=== PATIENT | female | born 2000 | race Caucasian/White ===

== ENCOUNTER 2024-07-25 10:57 | Emergency (ER) | payer OTHER, SELFPAY ==
[2024-07-25 11:10] VITALS: BP 109/83; PULSE 107; RESP 18; TEMP 36.6; O2SAT 100
--- NOTE | 2024-07-25 11:21 | ED.FEMALEGU ---
HPI - Female Genitourinary General Chief complaint: Urogenital-Female Stated complaint: Uti Symptoms Time Seen by Provider: 07/25/24 11:21 Source: patient, RN notes reviewed and old records reviewed Mode of arrival: ambulatory Limitations: no limitations History of Present Illness HPI Narrative: 24 year old female presents to [facility] care with complaints of UTI symptoms of burning, urinary frequency, urgency since Wednesday. Patient reports some lower abdomen cramping over suprapubic area, denies any right sided abdominal pain or any CVA tenderness. She stated that it seemed to get a little better then today it started again. Patient has dark colored urinedenies noting any visible blood when wiping. Patient reports that menses was one week ago, denies any concern for or any concern for STI exposure. Patient reports no fever or chills or any nausea or vomiting. Patient reports that she has taken some Ibuprofen for her symptoms. MD elicited complaint: UTI (symptoms) Onset (ago): day(s) (5 days) Location of symptoms: suprapubic and urethra Severity: moderate Quality of pain: cramping and burning Vaginal discharge: none Vaginal bleeding: none Treatment prior to arrival: NSAIDs Related Data Allergies Allergy/AdvReac Type Severity Reaction Status Date / Time No Known Allergies Allergy Verified 07/25/24 11:08 Review of Systems Review of Systems: CONSTITUTIONAL: Denies fever, chills, or sweats. CARDIOVASCULAR: Denies chest pain, palpitations, or edema. RESPIRATORY: Denies cough or dyspnea. GASTROINTESTINAL: suprapubic abdominal cramping, no nausea, vomiting, or diarrhea. GENITOURINARY: Reports dysuria, frequency, urgency, lower abdomen over suprapubic area cramping. Denies flank pain or visible hematuria. SKIN: Denies rash or itching. MUSCULOSKELETAL: Denies back pain or myalgia. Denies CVA tenderness NEUROLOGIC: Denies headache All systems reviewed & are unremarkable except as noted in HPI and below PMFSH Comments At time of signature, agree with nursing past medical, surgical, social and family history. There is no relevant family history pertinent to the presenting complaint Exam Narrative: GENERAL: Well-appearing, well-nourished, and in no acute distress. HEAD: Normocephalic, atraumatic. NECK: Supple. CHEST: Clear to auscultation. No respiratory distress. HEART: Regular rate and rhythm. No murmur heard. Normal peripheral pulses. ABDOMEN: Soft, nontender, nondistended, normal active bowel sounds. No CVA tenderness EXTREMITIES: Normal range of motion. No edema. SKIN: Warm, dry, no rash. NEURO: No focal deficits. Alert and oriented x3. Course Course Emergency Course: Patient is aware of diagnosis, understands and agrees to treatment plan.? Anticipatory guidance given.? Patient agrees to follow-up as directed and is aware of reasons to seek care at the emergency department. Portions of this record may have been created with voice recognition software Level of Care: Express Care Visit Vital Signs Vital signs: Vital Signs Temperature 36.6 C 07/25/24 11:10 Pulse Rate 107 H 07/25/24 11:10 Respiratory Rate 18 07/25/24 11:10 Blood Pressure 109/83 07/25/24 11:10 Pulse Oximetry 100 07/25/24 11:10 Temperature 36.6 C 07/25/24 11:10 Pulse Rate 107 H 07/25/24 11:10 Respiratory Rate 18 07/25/24 11:10 Blood Pressure 109/83 07/25/24 11:10 Pulse Oximetry 100 07/25/24 11:10 MDM - Female Genitourinary MDM Narrative Medical decision making narrative: Exam findings and UA show no acute concerns or changes; patient is non-toxic appearing and is in no distress.? Patient is appropriate for outpatient treatment and follow-up. Differential Diagnosis Differential diagnosis: Likely urinary tract infection and cystitis Medical Records Attestation: I reviewed the patient's medical records. Lab Data Attestation: I reviewed the patient's lab results. Lab results narrative: urine dip glucose negative, bilirubin negative, ketone negative, specific gravity 1.020, blood 3+, pH 7.0, protein 2+, urobilinogen 1.0 nitrate negative, leukocyte negative Labs: Lab Results 07/25/24 Range/Units 11:24 POC Urine Color [place] POC Urine Clarity Cloudy POC Urine pH 7.0 POC Ur Specif [place] 1.020 POC Urine Protein 2+ (Negative) POC Ur Glucose (UA) Negative (Negative) POC Urine Ketones Negative (Negative) POC Urine Blood 3+ (Negative) POC Urine Nitrite Negative (Negative) POC Urine Bilirubin Negative (Negative) POC Urine Urobilinogen 1.0 POC U Leukocyte Esteras Negative (Negative) reviewed Critical Care Time Critical Care Time Critical Care Time: No Discharge Plan Discharge Clinical Impression: UTI (urinary tract infection) Patient Disposition: Home, Self-Care Condition: Stable Instructions: Antibiotic Form, Urinary Tract Infection in Women (ED) Additional Instructions: Increase fluids especially cranberry juice and water Avoid caffeine and carbonated beverages Antibiotic as directed Tylenol/ibuprofen for pain or fever Follow-up with her primary care provider if further problems or concerns Recheck if you have fever over 101, nausea and vomiting. If any increase pain, nausea or vomiting or increased blood in urine go to the emergency room for further evaluation urine will be sent for culture if any change and antibiotic needs to be made you will be notified If your symptoms persist, change or worsen significantly before you can contact your personal physician then please, without delay, go to the emergency department for further evaluation. Follow-up with PCP in 7-10 days or sooner if needed Patient Language: Jamaican Prescriptions: New nitrofurantoin monohyd/m-cryst [Macrobid] 100 mg capsule 100 mg PO Q12H 7 Days Qty: 14 0RF Rx Instructions: must administer with a meal/food Follow-up/Referrals: PHYSICIAN,WINDOWS SUPPORT ENGINEER [Primary Care Provider] - Time of Disposition: 11:38 Quality Sherice Coma Scale Eyes: Open Verbal: Oriented and Alert Motor: Follows Commands Sherice Coma Total Score: 15
[2024-07-25 11:26] LABS: EDUAAPPEAR Cloudy; EDUABILI Negative (Negative); EDUABLOOD 3+ (Negative); EDUACOLOR1 Pink; EDUAGLUCOSE Negative (Negative); EDUAKETONE Negative (Negative); EDUALEUKO Negative (Negative); EDUANITRATE Negative (Negative); EDUAPROTEIN 2+ (Negative)
== END 2024-07-25 11:43 | disposition home or self-care (01) ==
PROVIDERS: Emergency Provider Registered Nurse
DX: N39.0 Urinary tract infection, site not specified (principal)
CPT/HCPCS: 81003; 87086; 99203; A4565; G0463

== ENCOUNTER 2024-08-01 08:20 | Emergency (ER) | payer OTHER, SELFPAY ==
[2024-08-01 08:28] VITALS: BP 110/89; PULSE 102; RESP 18; TEMP 36.2; O2SAT 100
--- NOTE | 2024-08-01 08:32 | ED.ABDPAIN ---
HPI - Abdominal Pain General Chief Complaint: Abdominal Pain Stated Complaint: R FLANK PAIN/ABD PAIN/NAUSEA Time Seen by Provider: 08/01/24 08:25 Source: patient and RN notes reviewed Mode of arrival: ambulatory Limitations: no limitations History of Present Illness HPI narrative: Presents to the [facility] today complaining abdominal pain and pain with urination. She said that she was here about 1 week ago and was diagnosed with a UTI. She said her symptoms initially improved with the Macrobid however her pain has started to get worse. She complains of right flank pain and also reports right lower quadrant pain and abdominal cramping. She has returned to the [facility] because she developed nausea and diarrhea this morning and was worried that she would not be able to keep anything down. She has been taking ibuprofen for pain that she says seems to help. She is worried that she might have a kidney stone. She took her last Macrobid this morning. she does report that she recently had unprotected sex as well he cannot rule out a . Related Data Allergies Allergy/AdvReac Type Severity Reaction Status Date / Time No Known Allergies Allergy Verified 08/01/24 10:08 Review of Systems Review of Systems: CONSTITUTIONAL: Denies fever, chills, or sweats. EYES: Denies visual changes, redness, or discharge. ENT: Denies rhinorrhea, congestion, sore throat, or otalgia. CARDIOVASCULAR: Denies chest pain, palpitations, or edema. RESPIRATORY: Denies cough or dyspnea. GASTROINTESTINAL: Positive for abdominal pain, nausea, and diarrhea. Negative for vomiting GENITOURINARY: positive for dysuria and negative for hematuria. SKIN: Denies rash or itching. MUSCULOSKELETAL: Denies back pain, joint pain, or myalgia. NEUROLOGIC: Denies headache, numbness, or weakness. PSYCHIATRIC: Denies anxiety or depression. All other systems reviewed are negative, except as documented in HPI. COUNT INCLUDES THE [facility] Past Medical History Medical History No pertinent past medical history Surgical History Surgical History No history of previous surgery Social History Social History Smoking status: Never smoker Alcohol intake: current Alcohol use details: social Substance use type: does not use Gender identity (if verbalized by the patient): Female Comments At the time of my signature, I reviewed and agree with the nursing past medical, surgical, social, and family history. There is no relevant family history pertinent to the patient complaint. Exam Narrative: GENERAL: This is a well-nourished, well-developed patient, in no apparent distress. HEAD: normocephalic, atraumatic. EYES: Sclera clear/white. Vision is grossly intact. EARS: External ears normal, auditory canals clear and without drainage. Hearing grossly intact. NOSE: External nose normal with no obvious nasal discharge CARDIOVASCULAR: Regular rate and rhythm without murmurs, gallops, or rubs. RESPIRATORY: Clear to auscultation. Breath sounds equal bilaterally. No wheezes, rales, or rhonchi. GASTROINTESTINAL: Abdomen soft, Tender to palpation to the right lower quadrant, nondistended. Bowel sounds are active. No hepato-splenomegaly, or palpable masses. No guarding. no rebound tenderness. Negative McBurney's point and obturator sign. SKIN: warm, Dry, intact with no suspicious lesions or rash, good texture and turgor. NEURO: awake, alert, and oriented to person, place and time. There were no obvious focal neurologic abnormalities. EXTREMITIES: No joint tenderness, effusion, or edema noted. BACK: Nontender without deformity. No CVA tenderness. Course Course Level of Care: Express Care Visit Vital Signs Vital signs: Vital Signs Temperature 97.2 F L 08/01/24 08:28 Pulse Rate 102 H 08/01/24 08:28 Respiratory Rate 18 08/01/24 08:28 Blood Pressure 110/89 08/01/24 08:28 Pulse Oximetry 100 08/01/24 08:28 Temperature 97.2 F L 08/01/24 08:28 Pulse Rate 102 H 08/01/24 08:28 Respiratory Rate 18 08/01/24 08:28 Blood Pressure 110/89 08/01/24 08:28 Pulse Oximetry 100 08/01/24 08:28 reviewed Transfer Transfered to: [place] Transfer rationale: Pt is agreeable to transfer. Requests transfer to [place]?hospital via private vehicle. Risks of transportation reviewed with pt including injury, worsening of condition and . v/u. Mother will be driving pt; Report called to hospital, spoke with Dr. Sabillon, accepting physician. Pt is in stable condition at time of transfer. Advised to remain NPO and go directly to the hospital.? Accepting physician: Dr. Sabillon MDM - Abdominal Pain MDM Narrative Medical decision making narrative: Discussed with patient that this express care only has capabilities with x-ray for diagnostic imaging of her abdomen. It is recommended that this patient goes to the emergency department for further evaluation since she may need advanced imaging and lab work to rule out any acute conditions. Patient is agreeable to go to the emergency department for further evaluation, report was called over to [place] [facility] and Dr. Sabillon is the accepting physician. Differential Diagnosis Differential diagnosis: Likely other ( Kidney stone, ectopic , UTI, appendicitis) Critical Care Time Critical Care Time Critical Care Time: No Discharge Plan Discharge Clinical Impression: Abdominal pain Qualifiers: Abdominal location: right lower quadrant Qualified Code(s): R10.31 - Right lower quadrant pain Patient Disposition: Acute Care Hospital Condition: Stable Patient Language: Mohawk Prescriptions: No Action nitrofurantoin monohyd/m-cryst [Macrobid] 100 mg capsule 100 mg PO Q12H 7 Days Qty: 14 0RF Rx Instructions: must administer with a meal/food Follow-up/Referrals: UNKNOWN,DOCTOR [Primary Care Provider] - Time of Disposition: 09:05
[2024-08-01 08:49] LABS: BEDSIDEPREGUCG Negative (Negative); EDUAAPPEAR Clear; EDUABILI Negative (Negative); EDUABLOOD 2+ (Negative); EDUACOLOR1 Amber; EDUAGLUCOSE Negative (Negative); EDUAKETONE 2+ (Negative); EDUALEUKO Negative (Negative); EDUANITRATE Negative (Negative); EDUAPH 5.5; EDUAPROTEIN 2+ (Negative); EDUAUROBILI 0.2
--- NOTE | 2024-08-01 08:56 | PC.NURSE ---
0850- [employer] states that pt doesnt want to have KUB xray completed today since she thinks she may be , urine test here today was negative but pt states she also did have unprotected sex on wednesday so she doesnt want an xray. [employer]NER OUT informed.
== END 2024-08-01 09:09 | disposition short-term general hospital (02) ==
DX: R10.31 Right lower quadrant pain (principal)
CPT/HCPCS: 81003; 81025; 99212; G0463

== ENCOUNTER 2024-08-01 09:28 | Emergency (ER) | payer OTHER, SELFPAY ==
--- NOTE | ~2024-08-01 | CT_ITS ---
EXAMINATION: CT abdomen pelvis wo con DATE: 08/01/2024 10:36 INDICATION: Right flank pain. Urinary tract infection. TECHNIQUE: Computed tomography (CT) of the abdomen and pelvis was performed without intravenous contr ast. Automated exposure control and iterative reconstruction technique were employed. The dose-length product was 193.22 mGy-cm. COMPARISON: None FINDINGS: Lung bases are clear. Heart size is normal. No pericardial or pleural effusion. Pectus excavatum. Rosa er, gallbladder, spleen, pancreas and bilateral adrenal glands are normal. Bilateral approximately 1 cm renal cysts. 4 mm stone in the distalmost right ureter near the ureterovesicular junction with mod erate right hydroureteronephrosis. No bowel obstruction. Small amount of ascites in the deep pelvis. Bladder, anteverted uterus and bilateral adnexa are unremarkable. No pathologically enlarged abdomina l or pelvic lymphadenopathy. 25 degrees thoracolumbar levoscoliosis. IMPRESSION: 1. Obstructing 4 mm stone at the right ureterovesicular junction with moderate right hydroureteroneph rosis. Reviewed, dictated and finalized at location A. IMPRESSION: 1. Obstructing 4 mm stone at the right ureterovesicular junction with moderate right hydroureteronephrosis.
--- NOTE | 2024-08-01 09:38 | ED_ITS ---
HPI - Abdominal Pain General Chief Complaint: Abdominal Pain Stated Complaint: RLQ abd pain Time Seen by Provider: 08/01/24 09:36 Source: patient Mode of arrival: ambulatory Limitations: no limitations History of Present Illness HPI narrative: Patient is a 24-year-old female who presents the ED with right flank pain, UTI symptoms. Patient reports she had developed some dysuria and hematuria last Wednesday. Went to an urgent care and was diagnosed with a urinary tract infection. Started on Macrobid. Began having some discomfort throughout her right flank region and lower abdomen yesterday. Pain was more severe around 7:00 a.m. this morning. She took ibuprofen and states pain is improved currently. She does report nausea, denies vomiting. Denies fevers. Related Data Allergies Allergy/AdvReac Type Severity Reaction Status Date / Time No Known Allergies Allergy Verified 08/01/24 10:08 Review of Systems 2 Review of Systems: All systems reviewed & are unremarkable except as noted in HPI. All systems reviewed & are unremarkable except as noted in HPI and below PMFSH Past Medical History Medical History No pertinent past medical history Surgical History Surgical History No history of previous surgery Social History Social History Smoking status: Never smoker Alcohol intake: current Alcohol use details: social Substance use type: does not use Gender identity (if verbalized by the patient): Female Exam 2 Narrative: GENERAL: Well appearing, thin, non-toxic, in no acute distress. HEAD: Normocephalic, atraumatic. RESPIRATORY: Airway patent, respirations nonlabored. Clear to auscultation bilaterally, no rales, rhonchi, wheezing. CARDIOVASCULAR: Regular rate and rhythm without murmurs, rubs, or gallops. ABDOMINAL: Soft, mild tenderness to palpation in suprapubic region, RLQ, nondistended. Normoactive BS. No significant CVA tenderness to percussion. MUSCULOSKELETAL: Moves all extremities. No gross deformities. SKIN: Warm, dry, normal color. NEURO: A&O X3. Speech clear. PSYCHIATRIC: Appropriate mood and affect. Normal interaction. Course Vital Signs Vital signs: Vital Signs Pulse Rate 94 08/01/24 10:06 Respiratory Rate 16 08/01/24 10:06 Blood Pressure 132/98 H 08/01/24 10:06 Pulse Oximetry 100 08/01/24 10:06 Temperature 98.3 F 08/01/24 11:01 Pulse Rate 94 08/01/24 10:06 Respiratory Rate 16 08/01/24 10:06 Blood Pressure 132/98 H 08/01/24 10:06 Pulse Oximetry 100 08/01/24 10:06 MDM - Abdominal Pain MDM Narrative Medical decision making narrative: Patient presented to ED with urinary complaints, right flank pain, concern for kidney stone. Started on Macrobid last week for suspected UTI. Vital signs are stable upon arrival. Afebrile. Patient is in no acute distress. Per records, culture from 07/25 was negative. Laboratory studies showing leukocytosis of 15.2. CMP is unremarkable. Kidney function is stable. UA with 2+ ketones, 1+ leuk esterase, 11-20 RBC/WBC. Re-sent for cx today. Patient has been on Macrobid for the last [address] scan of abdomen/pelvis and showing obstructing 4mm R UVJ stone with moderate hydroureteronephrosis. Patient updated on lab and imaging findings. This is patient's 1st kidney stone. She is not required IV pain medication throughout the ED stay. Pain is well controlled, resting comfortably. Remains afebrile. Will discuss with urology. Discussed case with Dr. Swan, urology, advised can go either way - patient can try going home on different antibiotic with Flomax and pain medication, strict return precautions, or can stay to have procedure today if there is OR availability. Discussed these recommendations with patient. She would like to try going home and passing the stone on her own. She is not in any significant pain. Does feel comfortable going home. I discussed very strict return precautions, including worsening pain, fevers, difficulty urinating, unable to tolerate p.o.. Patient voiced understanding. Given Urology information for follow-up as an outpatient. Patient discharged in stable condition. Medical Records Attestation: I reviewed the patient's medical records. Lab Data Attestation: I reviewed the patient's lab results. 08/01/24 10:08 08/01/24 10:08 Labs: Lab Results 08/01/24 08/01/24 Range/Units 10:04 10:08 WBC 15.2 H (4.5-10.0) K/mm3 RBC 4.30 (4.2-5.4) M/mm3 Hgb 13.2 (12.0-15.0) g/dL Hct 39.8 (37.0-47.0) % MCV 92.6 (80-100) fl MCH 30.7 (26-34) pg MCHC 33.2 (32-36) g/dl RDW 12.4 (11.5-14.5) % Plt Count 203 (150-375) k/mm3 MPV 11.0 H (7.4-10.4) fl Immature Gran % (Auto) 0.5 (0-0.5) % Neut % (Auto) 79.9 H (45.5-73.1) % Lymph % (Auto) 10.6 L (18.3-44.2) % [place] % (Auto) 8.0 (2.6-8.5) % Eos % (Auto) 0.7 (0-4.4) % Baso % (Auto) 0.3 (0.2-1.2) % Lymph # (Auto) 1.62 (0.9-3.2) K/mm3 [place] # (Auto) 1.2 H (0.1-0.6) K/mm3 Eos # (Auto) 0.1 (0-0.3) K/mm3 Baso # (Auto) 0.0 (0.0-0.1) K/mm3 Abs Immat Gran (auto) 0.07 H (0.00-0.031) K/mm3 Absolute Neuts (auto) 12.2 H (1.3-6.7) K/mm3 Absolute Nucleated RBC 0.000 (0.0-0.012) K/mm3 Nucleated RBC % 0.0 (0.0-0.2) % Sodium 140 (137-145) mmol/L Potassium 4.0 (3.4-5.0) mmol/L Chloride 103 (98-107) mmol/L Carbon Dioxide 24 (22-30) mmol/L Anion Gap 13 H (4-12) mmol/L BUN 14 (7-17) mg/dL Creatinine 0.84 (0.7-1.0) mg/dL Estim Creat Clear Calc 72 ml/min Estimated GFR > 60 (59 - ) Glucose 90 (65-110) mg/dL Calcium 9.9 (8.4-10.2) mg/dL Total Bilirubin 0.8 (0.2-1.3) mg/dL AST 26 (14-36) U/L ALT 15 (6-35) U/L Alkaline Phosphatase 59 (38-126) U/L Total Protein 8.0 (6.3-8.2) g/dL Albumin 5.0 (3.5-5.1) g/dL Lipase 41 (23-300) U/L Urine Color Yellow (Yellow) Urine Appearance Clear (Clear) Urine pH 5.5 (5.0-9.0) Ur Specific [place] 1.017 (1.001-1.035) Urine Protein Negative (Negative) mg/dL Urine Glucose (UA) Negative (Negative) mg/dL Urine Ketones 2+ H (Negative) mg/dL Ur Blood (Man) 2+ H (Negative) Urine Nitrate Negative (Negative) Urine Bilirubin Negative (Negative) Urine Urobilinogen 0.2 (<2.0) mg/dL Leukocyte Esterase Rfl 1+ H (Negative) RICCARDO/UL Urine RBC 11-20 H (0-2) /hpf Urine WBC 11-20 H (0-3) /hpf Ur Squamous Epith Cells Occasional (Few) /hpf Urine Bacteria None seen /hpf Urine Casts 0-2 POC Urine HCG, Qual Negative (Negative) Imaging Data Attestation: I personally reviewed and interpreted this imaging study as follows: Radiologist's impression: ITS Impressions Abdomen/Pelvis CT 08/01/24 10:38 IMPRESSION: 1. Obstructing 4 mm stone at the right ureterovesicular junction with moderate right hydroureteronephrosis. Discharge Plan Discharge Clinical Impression: Calculus of distal right ureter, Abnormal finding on urinalysis Patient Disposition: Home, Self-Care Condition: Stable Instructions: Antibiotic Form, Kidney Stones (ED), Urinary Tract Infection in Women (ED), Ureteral Stones (ED) Additional Instructions: You were diagnosed with a right sided kidney stone today. Take antibiotics as prescribed (Keflex). Take Flomax daily. Stay well-hydrated. Utilize Tylenol as needed for pain. [place] as needed for more severe pain. Recommend avoiding anti-inflammatories for now in case you may need a urologic procedure (no advil, ibuprofen, motrin, naproxen, aleve). Follow-up with urology for further evaluation. Call office to make appointment. Return to the ED if you experience worsening or severe pain, unable to keep down food or drink, fevers of any kind, difficulty urinating, worsening blood in urine, or any other symptoms of concern. Patient Language: Albanian Prescriptions: New hydrocodone-acetaminophen 5-325 mg tablet 1 tablet PO Q6H PRN (Reason: pain) Qty: 10 0RF tamsulosin [Flomax] 0.4 mg capsule 0.4 mg PO DAILY Qty: 7 0RF cephalexin 500 mg capsule 500 mg PO Q6H 7 Days Qty: 28 0RF ondansetron 4 mg tablet,disintegrating 4 mg PO Q8H PRN (Reason: nausea and vomiting) Qty: 15 0RF No Action nitrofurantoin monohyd/m-cryst [Macrobid] 100 mg capsule 100 mg PO Q12H 7 Days Qty: 14 0RF Rx Instructions: must administer with a meal/food Follow-up/Referrals: Mekhi Swan MD [Physician] - (UROLOGY) UNKNOWN,DOCTOR [Primary Care Provider] - Time of Disposition: 11:40
--- OUTSIDE RECORDS SUMMARY | 2024-08-01 10:05 | XMS_ITS | Continuity of Care Document ---
Author Organization [facility] Address [address] [place] [address] Phone Care Team Providers Care Scrap Baller Name Role Phone Obed Reed MD Unavailable Unavailable Allergies, Adverse Reactions, Alerts Substance Reaction Status Criticality No Known Allergies Active No Inform ation Medications Medication Instructions Dosage Effective Dates (start - stop) Status Comments No Drug Therapy Prescribed Results Test Name Date and Time Measure Units Reference Range Abnormal Flag Status Commen ts Panel Description: HGB-OL Final HGB 14.5 g/dL 11.7 - 15.5 Final Advance Directives Directive Yes / No Effective Date File Name No Information Encounters Encounter Description Practice Location Reason(s) For Visit Diagnoses Date Provider Providers Copied on Encounter [employer], [address], [place], [place], [address] , [place] tel: [phone] [facility] Encounter for routine child health examination without abnormal findingsUnderweig htPectus excavatumScreenin g for deficiency anemia 9 Derek Clay. [address] [place] [address], [id number], [place]. tel:[phone] Referring Provider: Obed Reed , [address] [place] [address], [place], [address] . tel:[phone] [employer], [address], [place], [place], [address] , [place] tel: [phone] [facility] UnderweightEncoun ter for routine child health examination without abnormal findings 8 Derek Clay. [address], [address], [place], [place], [address], [place]. [phone] Referring Provider: Obed Reed , [address] [place] [address] [address], [place], [address] . tel:[phone] [facility], [address], [place], [place], [address] , [place] tel: [phone] [facility] Pharyngitis 7 Derek Clay. [address] [place] [address], [address], [place], [place], [address], [place]. [phone] Referring Provider: Obed Reed , [address] [place] [address] [address], [place], [address] . tel:[phone] [facility], [address], [place], [place], [address] , [place] tel:[phone] [facility] Encntr for routine child health exam w/o abnormal findingsUnderweig 6 Jen Weller. [address], [place], [place], [address], [place]. tel:[phone] Referring Provider: Obed Reed , [address] [place] [address] [address], [place], [address] . tel:[phone] [facility], [address], [place], [place], [address] , [place] tel:[phone] [facility] Encounter for routine child health examination without abnormal findingsUnderweig 5 Derek Clay. [address] [place] [address], [address], [facility], [place], [address], [place]. tel:[phone] Referring Provider: Obed Reed , [address] [place] [address] [address], [place], [address] . tel:[phone] [facility] [employer], [address], [place], [place], [address] , tel: [phone] [facility] Strep pharyngitis 4 Medardo Wolff. [address], [address], [place], [place], [address], [place]. tel:[phone] Referring Provider: Obed Reed , [address] [place] [address] [address], [place], [address] . tel:[phone] [facility] [employer], [address], [place], [place], [address] , [place] tel: [phone] [facility] Routine or child health checkOther problems related to lifestyleRoutine or child health checkNeed for prophylactic vaccination and inoculation against other specified single bacterial disease 4 Derek Clay. [address], [address], [place], [place], [address], [place]. [phone] Referring Provider: Obed Reed , [address] [place] [address] [address], [place], [address] . tel:[phone] [facility] [employer], [address], [place], [place], [address] , tel: [phone] [facility] Acute bacterial sinusitis 3 Derek Clay. [address], [address], [place], [place], [address], [place]. [phone] Referring Provider: Obed Reed , [address] [place] [address] [address], [place], [address] . tel:[phone] [facility] [employer], [address], [place], [place], [address] , tel:[phone] [facility] Cough 3 Paulino Hayes. [address], [address], [place], [place], [address], [place]. tel:[phone] Referring Provider: Obed Reed , [address] [place] [address] [address], [place], [address] . tel:[phone] [facility], [address], [place], [place], [address] , tel:[phone] [facility] Radius shaft fracture 2 Derek Clay. [address] [place] [address], [address], [place], [place], [address], . tel:[phone] Referring Provider: Obed Reed , [address] [place] [address] [address], [place], [address] . tel:[phone] [facility], [address], [place], [place], [address] , tel:[phone] [facility] Routine infant or child health checkRoutine infant or child health checkOther problems related to lifestyle 1 Derek Clay. [address] [place] [address], [address], [place], [place], [address], . tel:[phone] Referring Provider: Obed Reed , [address] [place] [address] [address], [place], [address] . tel:[phone] [facility], [address], [place], [place], [address] , [phone] Conversion Department No Information 1 Conversion Doctor. [facility] [place], [address], . Family History Family Member Type Diagnosis Age At Onset No Information Immunizations Vaccine Date Status Comments HPV (9-valent) administered Source: New I mmunization Record Hep A (ped/adol, 2 dose) administered Elidia rce: New Immunization Record Fluzone-Flulaval Quad, preservative free, split virus, 0.5mL dosage administered Source: Other Provid er Hep A (ped/adol, 2 dose) administered Elidia rce: New Immunization Record HPV (9-valent) administered Source: New I mmunization Record Fluzone-Flulaval Quad , preservative free, split virus, 0.5mL dosage administered Note: norma shah ; Source: Parents Recall Influenza, injectable, quadrivalent, preservative free, 3 yrs or older administered Source: New Immuniz ation Record Influenza, live, intranasal, quadrivalent administered Source: New Immuniza tion Record Tdap administered Note: vis 3 ; Source: New Immunization Record MCV4 administered Note: vis 02/13 ; Source: New Immunization Record 19701 - Influenza administered Source: So urce Unspecified 55888 - MMR administered Source: Source Unspecified 08609 - Varicella administered Source: So urce Unspecified 56883 - Polio_OPV_IPV administered Source : Source Unspecified 52510 - DTaP_DTP_DT_PEDS administered Elidia rce: Source Unspecified 89556 - Influenza administered Source: So urce Unspecified 64267 - Influenza administered Source: So urce Unspecified 99158 - Pneumococcal_PCV administered Elidia rce: Source Unspecified 92829 - Influenza administered Source: So urce Unspecified 78441 - DTaP_DTP_DT_PEDS, Hib administere d Source: Source Unspecified 63900 - MMR administered Source: Source Unspecified 44432 - Varicella administered Source: So urce Unspecified 61666 - Influenza administered Source: So urce Unspecified 98996 - Polio_OPV_IPV administered Source : Source Unspecified 47867 - Hepatitis_B administered Source: Source Unspecified 15272 - Hepatitis_B administered Source: Source Unspecified 98211 - Hib administered Source: Source Unspecified 45353 - Pneumococcal_PCV administered Elidia rce: Source Unspecified 90140 - DTaP_DTP_DT_PEDS administered Elidia rce: Source Unspecified 17815 - DTaP_DTP_DT_PEDS administered Elidia rce: Source Unspecified 97464 - Pneumococcal_PCV administered Elidia rce: Source Unspecified 86323 - Hib administered Source: Source Unspecified 26741 - Polio_OPV_IPV administered Source : Source Unspecified 98031 - Hib administered Source: Source Unspecified 00516 - Polio_OPV_IPV administered Source : Source Unspecified 07531 - Pneumococcal_PCV administered Elidia rce: Source Unspecified 84242 - DTaP_DTP_DT_PEDS administered Elidia rce: Source Unspecified 13116 - Hepatitis_B administered Source: Source Unspecified Payers Payer name Insurance type Covered republican ID Authoriza tion(s) CIGNA OPEN ACCESS CI [id number] CIGNA OPEN ACCESS CI [id number] CIGNA OPEN ACCESS CI [id number] CIGNA OPEN ACCESS CI [id number] CIGNA OPEN ACCESS CI [id number] BCBS INACTIVE ANTHEM ALLIANCE BL [id number] Social History Type Description Quantity Date Captured Comments Alcohol Use Details Unknown Caffeine Use Details Unknown Tobacco Use Status No Information Smoking Status Never smoker Sex Female Vital Signs Date / Time: Height Weight BMI Pulse Rate Blood Pressure Temperature Respiratory Rate Body Surface Area Head Circumference Head Circ. Percentile Wt./Lyle. Percentile BMI percentile Pulse Ox Inhaled Ox 1:48 PM 66.34 in 46.085 kg (101.60 lbs) 16.2 3 kg/m eter (2) 120 /min 111/79 mm[Hg] 2 Chief Complaint And Reason For Visit No Information Reason For Referral Reason For Referral No Information History Of Present Illness Encounter Date Complaint History Of Prese nt Illness No Information Functional Status Date Functional Assessmen t No Information Medications Administered Medication Instructions Dosage Effective Dates (start - stop) Status Comments No Drug Therapy Prescribed Instructions Date Instruction Additional Infor mation No Information Assessments Type Assessment Date No Information Patient Care Teams Name Effective Dates (start - stop) Status Members No Information
--- OUTSIDE RECORDS SUMMARY | 2024-08-01 10:05 | XMS_ITS | Clinical Summary ---
Author Organization [facility] Address [address] [place] [address] Care Team Providers Care Sailor Name Role Phone Ronit Charles MD Primary Care Provider [phone] Source Comments [facility],non-owned Affiliates and Associated Physician Practices is amultiple site organization consisting of ambulatory clinics and hospital sitesin [place], [place], [place] and [place]. This disclosure is being madepursuant to the Care Everywhere program and may not contain all information available regarding this patient. Last updated 18.[facility] Allergies No known active allergies Medications * Be aware that medications may not be up to date on this document. Alwaysverify current medications with the patient. Medication Sig Dispensed Refills Start Date End Date Status levonorgestrel-ethinyl estradiol (LESSINA-28) 0.1-20 MG-MCG tabletIndications:Dysm enorrhea Take 1 (one) tablet by mouth once daily 3 packet 4 01/22/2021 Active Active Problems Problem Noted Date Diagnosed Date Dysmenorrhea 01/22/2021 Pectus excavatum 05/21/2019 Underweight in adolescence 05/21/2019 Overview (05/21/2019): Likely constitutional per previous peds/PCP record review; has always been quite small but has been improving over past couple years; hgb 14.5 ; appears nourished/hydrated, + regular periods, no mood d/o or body image issues Acne 05/04/2019 Immunizations Name Administration Dates Next Due DTaP VACCINE IM (6wk-6yrs) 05/28/2007,,2002,09/23,2002 HEP A PEDS 2 DOSE 05/16/2018,05/15/2017 HEP B VACCINE, PED/ADOL 03/23/2003,2002, HIB-PRP-OMP 3 DOSE 2002,2002, 003 HIB-PRP-T 4 DOSE 2002,2002, 3 Human Papilloma Virus Nineva lent Vaccine 05/16/2018,05/15/2017 INFLUENZA VACCINE 03/03/2018, 7,04/11/2016,02/21,04/07/2008,03/19/2007,03/06/2006 ,02/08/2004,03/23/2003 INFLUENZA VACCINE, CELL CULT URE, QUADR. (FLUCELVAX QUADRIVALENT; 6MO+) (CCIIV4) 03/23/2017 INFLUENZA VACCINE, QUADR. (F LUZONE; FLULAVAL; FLUARIX; AFLURIA QUADRIVALENT; 6MO+), 0.5 ML (IIV4) 03/26/2019,03/03/2018,01/29/2018 IFRAH VACCINE QUAD LAIV4 PF NASAL 02/03/2014 MENINGOCOCCAL CONJUGATE (MCV4P) 05/04/2019 MMR 05/28/2007,06/02/2003 PNEUMOCOCCAL PCV7 CONJ, PEDS 06/21/2004, 2002,2002,07/20 POLIO IPV 05/28/2007, 3,2002,07/20 Pneumococcal Pcv13 Conj 06/21/2004,11/23,2002,07/20 TDAP (7yrs+) 08/29/2013 VARICELLA 05/28/2007,06/02/2003 Family History Medical History Relation Name Comments Cancer - Skin, Non Melanoma Father BCC Cancer - Skin, Non Melanoma Mother BCC Depression Sister Relation Name Status Comments Father Alive Mother Alive Sister Alive Social History Tobacco Use Types Packs/Day Years Used Date Smoking Tobacco: Never Smokeless Tobacco: Never Alcohol Use Standard Drinks/Week Comments Never 0 (1 standard drink = 0.6 oz pur e alcohol) AUDIT-C Answer Date Recorded Frequency of Alcohol Consumption Never 05/04/2019 Average Number of Drinks Not on file 020 Frequency of Binge Drinking Not on file 06/2019 PHQ-2 Answer Date Recorded PHQ2 TOTAL SCORE 0 01/22/2021 Sex and Gender Information Value Date Recorded Sex Assigned at Not on file Gender Identity Not on file Sexual Orientation Not on file Last Filed Vital Signs Vital Sign Reading Time Taken Comments Blood Pressure 119/74 01/22/2021 10:41 AM CDT Pulse 133 01/22/2021 10:41 AM CDT Temperature 36.8 C (98.2 F) 06/03/2020 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 AM 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 Respiratory Rate 18 06/03/2020 10:05 AM 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 Oxygen Saturation 100% 01/22/2021 10:41 AM CDT Inhaled Oxygen Concentration - - Weight 47.9 kg (105 lb 9.6 oz) 01/22/2021 10:41 AM CDT Height 170.2 cm (5' 7 ) 01/22/2021 10:41 AM CDT Body Mass Index 16.54 01/22/2021 10:41 AM CDT Plan of Treatment Health Maintenance Due Date Last Done Comments PAP SMEAR 2002 MENINGOCOCCAL (Group B) VACCINE SHARED DECISION-MAKING (1 of 2 - Standard) 2018 CHLAMYDIA/GONORRHEA SCREENING 01/22/2022 01/22/2021 DTAP/TDAP/TD VACCINES (7 - Td or Tdap) 08/30/2023 08/29/2013, 05/28/2007, 08/28/2003, Additional history exists COVID-19 VACCINE (3 - season) 2024 10/02/2020, 09/11/2020 INFLUENZA VACCINE (#1) 2024 9, 03/03/2018, 03/03/2018, Additional history exists DEPRESSION SCREENING 05/03/2024 ZOSTER VACCINE (1 of 2) 2052 HIB VACCINE Aged Out 2002, 11/01, 2002, Additional history exists No longer eligible based on patient's age to complete this topic HEPATITIS B VACCINE Completed 03/23/2003, 2002, 2002 PNEUMOCOCCAL VACCINE Completed 06/21/2004, 06/21/2004, 2002, Additional history exists HPV VACCINE Completed 05/16/2018, 05/15/2017 MENINGOCOCCAL GROUPS A/C/Y/W VACCINE Completed 05/04/2019 HEPATITIS C SCREENING Completed 01/22/2021 HIV SCREENING Completed 01/22/2021 Procedures Procedure Name Priority Date/Time Associated Diagnosis Comments HEPATITIS C ANTIBODY Routine 01/22/2021 10:59 AM CDT Screen for STD (sexually transmitted disease) CHLAMYDIA + GC + TRICH DNA AMPL Routine 01/22/2021 10:59 AM CDT Screen for STD (sexually transmitted disease) HIV-1 HIV-2 ANTIBODY + HIV P24 AG PANEL Routine 01/22/2021 10:59 AM CDT Screen for STD (sexually transmitted disease) from Last 3 Months or Most Recently Relevant to Health Maintenance Results * HIV-1 HIV-2 ANTIBODY + HIV P24 AG PANEL (01/22/2021 10:59 AM CDT) HIV Screen 4th Generation w Reflex Non Reactive Non Reactive [facility] ACCOUNT BILL Blood BLOOD SPECIMEN / Unknown 01/22/2021 10:59 AM CDT 01/22/2021 Narrative Resulting Agency Comment Lab Testing performed at: [facility] [address] [facility] [phone] Ronit Charles MD LAB - CHEMISTRY O RDERABLES [facility] ACCOUNT BILL [address] [place] [address] * CHLAMYDIA + GC + TRICH DNA AMPL (01/22/2021 10:59 AM CDT) Chlamydia trachomatis RADHA Negative Negative [facility] ACCOUNT BILL GC DNA Probe Negative Negative [facility] ACCOUNT BILL Trichomonas vaginalis by RADHA Negative Negative [facility] ACCOUNT BILL Microbiology URINE / Unknown 01/22/2021 1 0:59 AM CDT 01/22/2021 Narrative Resulting Agency Comment Lab Testing performed at: [facility] [address] [place] [id number] Ronit Charles MD LAB - MICROBIOLOG Y ORDERABLES [facility] ACCOUNT BILL [address] [place] [address] * HEPATITIS C ANTIBODY (01/22/2021 10:59 AM CDT) Hepatitis C Antibody <0.1 0.0 - 0.9 s/co ratio [facility] ACCOUNT BILL Comment: Negative: < 0.8 Indeterminate: 0.8 - 0.9 Positive: > 0.9 . The CDC recommends that a positive HCV antibody result be followed up with a HCV Nucleic Acid Amplification test (052277). Blood BLOOD SPECIMEN / Unknown 01/22/2021 10:59 AM CDT 01/22/2021 Narrative Resulting Agency Comment Lab Testing performed at: [facility] [address] [facility] [id number] Ronit Charles MD LAB - CHEMISTRY O RDERABLES [facility] ACCOUNT BILL [address] [place] [address] from Last 3 Months or Most Recently Relevant to Health Maintenance CINDY MACE Personal/Famil y [address] [place] [address] NICOLASA MACE Personal/Famil y Other [address] [place] [address] TIPPEN,NICOLAAS P Personal/Famil y Other [address] [place] [address] TIPPEN,NICOLASA P Personal/Famil y Other [address] [place] [address] TIPPEN,NICOLASA P Personal/Famil y Other [address] [place] [address] TIPPEN,NICOLASA P Personal/Famil y Other [address] [place] [address] TIPPEN,NICOLASA P Personal/Famil y Other [address] [place] [address] TIPPEN,NICOLASA P Personal/Famil y Other [address] [place] [address] TIPPEN,NICOLASA P Personal/Famil y Other [address] [place] [address] TIPPEN,NICOLASA P Personal/Famil y Other [address] [place] [address] TIPPEN,NICOLASA P Personal/Famil y Other [address] [place] [address] TIPPEN,NICOLASA P Personal/Famil y Other [address] [place] [address] TIPPEN,NICOLASA P Personal/Famil y Other [address] [place] [address] TIPPEN,NICOLASA P Personal/Famil y Other [address] [place] [address] TIPPEN,NICOLASA P Personal/Famil y Other [address] [place] [address] TIPPEN,NICOLASA P Personal/Famil y Other [address] [place] [address] TIPPEN,NICOLASA P Personal/Famil y Other [address] [place] [place] [address] Care Teams Sailor Relationship Specialty Start Date End Date Ronit Charles MD [address] [place] [address] [place] [address] [facility] - General 11/06/19
[2024-08-01 10:06] VITALS: BP 132/98; PULSE 94; RESP 16; O2SAT 100
[2024-08-01 10:06] LABS: BEDSIDEPREGUCG Negative (Negative)
[2024-08-01] MEDS: SODIUM CHLORIDE 0.9% IV 1,000 ML 999 ML IV CONT (10:08)
[2024-08-01] MEDS: ONDANSETRON INJ 4 MG/2 ML VIAL IV PUSH (10:09)
[2024-08-01 10:24] LABS: Basophils Percent Auto 0.3 % (0.2-1.2); Eosinophils Absolute Auto 0.1 K/mm3 (0-0.3); Eosinophils Percent Auto 0.7 % (0-4.4); Hematocrit 39.8 % (37.0-47.0); Hemoglobin 13.2 g/dL (12.0-15.0); Immature Granulocyte Absolute 0.07 K/mm3 (0.00-0.031); Immature Granulocyte Percent A 0.5 % (0-0.5); Lymphocytes Absolute Auto 1.62 K/mm3 (0.9-3.2); Lymphocytes Percent Auto 10.6 % (18.3-44.2); Mean Corpuscular HGB Conc 33.2 g/dl (32-36); Mean Corpuscular Hemoglobin 30.7 pg (26-34); Mean Corpuscular Volume 92.6 fl (80-100); Monocytes Absolute Auto 1.2 K/mm3 (0.1-0.6); Neutrophils Absolute Auto 12.2 K/mm3 (1.3-6.7); Neutrophils Percent Auto 79.9 % (45.5-73.1); Platelet Count Result 203 k/mm3 (150-375); Red Cell Distribution Width 12.4 % (11.5-14.5); White Blood Count 15.2 K/mm3 (4.5-10.0)
[2024-08-01 10:27] LABS: Add Urine Microscopic? YES; Appearance Urine Clear (Clear); Bacteria Urine None Seen /hpf; Bilirubin Urine Negative (Negative); Blood Urine 2+ (Negative); Color Urine Yellow (Yellow); Glucose Urine UA Negative (Negative); Ketones Urine 2+ mg/dL (Negative); Leukocyte Esterase Ur 1+ LEU/UL (Negative); Nitrate Urine Negative (Negative); Non Pathogenic Casts 0-2; Protein Urine Negative (Negative); Specific Grav Ur 1.017 (1.001-1.035); Squamous Epithelial Cell Urine Occasional /hpf (Few); Urobilinogen Urine 0.2 mg/dL (<2.0); pH Urine 5.5 (5.0-9.0)
[2024-08-01 10:33] LABS: Alanine Aminotransferase 15 U/L (6-35); Alkaline Phosphatase 59 U/L (38-126); Anion Gap 13 mmol/L (4-12); Aspartate Amino Transferase 26 U/L (14-36); Bilirubin,Total 0.8 mg/dL (0.2-1.3); Blood Urea Nitrogen 14 mg/dL (7-17); Calcium 9.9 mg/dL (8.4-10.2); Carbon Dioxide 24 mmol/L (22-30); Chloride 103 mmol/L (98-107); Estimated CRCL calculation 72 ml/min; Estimated Glomerular Filt Rate > 60; Glucose 90 mg/dL (65-110); Lipase 41 U/L (23-300); Sodium 140 mmol/L (137-145)
--- OUTSIDE RECORDS SUMMARY | 2024-08-01 10:41 | XMS_ITS | Continuity of Care Document ---
Author Organization [facility] Address [address] [place] [address] Phone Care Team Providers Care Arbor End Mainspring Former Name Role Phone Obed Reed MD Unavailable [...] Diagnoses Date Provider Providers Copied on Encounter Anonymous You, [address], [place], [place], [address] , [place] tel: [phone] Anonymous You [facility] Encounter for routine child health examination without abnormal findingsUnderweig htPectus excavatumScreenin g for deficiency anemia 9 Derek Clay. [address] [place] [address], [id number], [place]. tel:[phone] Referring Provider: Obed Reed , [address] [place] [address], [place], [address] . tel:[phone] Anonymous You, [address], [place], [place], [address] , [place] tel: [phone] [facility] UnderweightEncoun ter for routine child health examination without abnormal findings [address] [facility], [address], [place], [place], [address], [place]. [phone] Referring Provider: Obed Reed , [address] [place] [address] [address], [place], [address] . tel:[phone] [facility], [address], [place], [place], [address] , [place] tel: [phone] [facility] Pharyngitis 7 Derek Clay. [address] [place] [address], [address], [place], [place], [address], [place]. [phone] Referring Provider: Obed Reed , [address] [place] [address] [address], [place], [address] . tel:[phone] [facility], [address], [place], [place], [address] , [place] tel:[phone] [facility] Encntr for routine child health exam w/o abnormal findingsUnderweig [address] [facility], [place], [place], [address], [place]. tel:[phone] Referring Provider: Obed Reed , [address] [place] [address] [address], [place], [address] . tel:[phone] [facility], [address], [place], [place], [address] , [place] tel:[phone] [facility] Encounter for routine child health examination without abnormal findingsUnderweig 5 Derek Clay. [address] [place] [address], [address], [facility], [place], [address], [place]. tel:[phone] Referring Provider: Obed Reed , [address] [place] [address] [address], [place], [address] . tel:[phone] [facility], [address], [place], [place], [address] , tel: [phone] [facility] Strep pharyngitis [address] [facility], [address], [place], [place], [address], [place]. tel:[phone] Referring Provider: Obed Reed , [address] [place] [address] [address], [place], [address] . tel:[phone] [facility], [address], [place], [place], [address] , [place] tel: [phone] [facility] Routine or child health checkOther problems related to lifestyleRoutine or child health checkNeed for prophylactic vaccination and inoculation against other specified single bacterial disease [address] [facility], [address], [place], [place], [address], [place]. [phone] Referring Provider: Obed Reed , [address] [place] [address] [address], [place], [address] . tel:[phone] [facility], [address], [place], [place], [address] , tel: [phone] [facility] Acute bacterial sinusitis [address] [facility], [address], [place], [place], [address], [place]. [phone] Referring Provider: Obed Reed , [address] [place] [address] [address], [place], [address] . tel:[phone] [facility], [address], [place], [place], [address] , tel:[phone] [facility] Cough [address] [facility], [address], [employer] [employer] [place] [employer], [address], [place]. tel:[phone] Referring Provider: Obed Reed , [address] [place] [address] [address], [place], [address] . tel:[phone] [facility], [address], [place], [place], [address] , tel:[phone] [facility] Radius shaft fracture 2 Derek Clay. [address] [place] [address], [address], [place], [place], [address], . tel:[phone] Referring Provider: Obed Reed , [address] [place] [address] [address], [place], [address] . tel:[phone] [facility], [address], [place], [place], [address] , tel:[phone] [facility] Routine infant or child health checkRoutine infant or child health checkOther problems related to lifestyle 1 Derek Clay. [address] [place] [address], [address], [place], [place], [address], . tel:[phone] Referring Provider: Obed Reed , [address] [place] [address] [address], [place], [address] . tel:[phone] [facility], [address], [place], [place], [address] , [phone] Conversion Department No Information 1 Conversion Doctor. [place], [address], . Family History Family Member Type Diagnosis [...] vis 02/13 ; Source: New Immunization Record 09928 - Influenza administered Source: So urce Unspecified 65074 - MMR administered Source: Source Unspecified 83987 - Varicella administered Source: So urce Unspecified 54179 - Polio_OPV_IPV administered Source : Source Unspecified 32148 - DTaP_DTP_DT_PEDS administered Elidia rce: Source Unspecified 87532 - Influenza administered Source: So urce Unspecified 50053 - Influenza administered Source: So urce Unspecified 70362 - Pneumococcal_PCV administered Elidia rce: Source Unspecified 29428 - Influenza administered Source: So urce Unspecified 41590 - DTaP_DTP_DT_PEDS, Hib administere d Source: Source Unspecified 32029 - MMR administered Source: Source Unspecified 91592 - Varicella administered Source: So urce Unspecified 46392 - Influenza administered Source: So urce Unspecified 79081 - Polio_OPV_IPV administered Source : Source Unspecified 58644 - Hepatitis_B administered Source: Source Unspecified 88422 - Hepatitis_B administered Source: Source Unspecified 86038 - Hib administered Source: Source Unspecified 74868 - Pneumococcal_PCV administered Elidia rce: Source Unspecified 51550 - DTaP_DTP_DT_PEDS administered Elidia rce: Source Unspecified 94975 - DTaP_DTP_DT_PEDS administered Elidia rce: Source Unspecified 78112 - Pneumococcal_PCV administered Elidia rce: Source Unspecified 05548 - Hib administered Source: Source Unspecified 13896 - Polio_OPV_IPV administered Source : Source Unspecified 23707 - Hib administered Source: Source Unspecified 16600 - Polio_OPV_IPV administered Source : Source Unspecified 76376 - Pneumococcal_PCV administered Elidia rce: Source Unspecified 63996 - DTaP_DTP_DT_PEDS administered Elidia rce: Source Unspecified 25887 - Hepatitis_B administered Source: Source Unspecified Payers Payer name Insurance type Covered green party ID Authoriza tion(s) CIGNA OPEN ACCESS CI [id number] CIGNA OPEN ACCESS CI [id number] CIGNA OPEN ACCESS CI [id number] CIGNA OPEN ACCESS CI [id number] CIGNA OPEN ACCESS CI [id number] [employer] INA[employer]IVE [employer] BL [id number] Social History Type Description Quantity Date [...]
--- OUTSIDE RECORDS SUMMARY | 2024-08-01 10:41 | XMS_ITS | Clinical Summary ---
Author Organization [facility] Address [address] [place] [address] Care Team Providers Care Dance Therapist Name Role Phone Ronit Charles MD Primary Care Provider [phone] Source Comments [facility],non-owned Affiliates and Associated Physician Practices is amultiple site organization consisting of ambulatory clinics and hospital sitesin [place], [place], [place] and [place]. This disclosure is being madepursuant to the Care Everywhere program and may not contain all information available regarding this patient. Last updated 18.[facility] Allergies No known active allergies Medications * [...] 36.8 C (98.2 F) 06/03/2020 10:05 AM RISK MANAGEMENT MANAGER Respiratory Rate 18 06/03/2020 10:05 AM RISK MANAGEMENT MANAGER Oxygen Saturation 100% 01/22/2021 10:41 AM CDT [...] Resulting Agency Comment Lab Testing performed at: [facility] [address] [id number] Ronit Charles MD LAB - CHEMISTRY O RDERABLES [facility] ACCOUNT BILL [address] [place] [address] * CHLAMYDIA + GC + TRICH DNA AMPL (01/22/2021 10:59 AM CDT) Chlamydia trachomatis RADHA Negative Negative [facility] ACCOUNT BILL GC DNA Probe Negative Negative [facility] ACCOUNT BILL Trichomonas vaginalis by RADHA Negative Negative [facility] ACCOUNT BILL Microbiology URINE / Unknown 01/22/2021 1 0:59 AM CDT 01/22/2021 Narrative Resulting Agency Comment Lab Testing performed at: [facility] [address] [place] [id number] Ronit Charles MD LAB - MICROBIOLOG Y ORDERABLES [facility] ACCOUNT BILL [address] [place] [address] * HEPATITIS C ANTIBODY (01/22/2021 10:59 AM CDT) Hepatitis C Antibody <0.1 0.0 - 0.9 s/co ratio [facility] ACCOUNT BILL Comment: Negative: < 0.8 Indeterminate: 0.8 - 0.9 Positive: > 0.9 . The CDC recommends that a positive HCV antibody result be followed up with a HCV Nucleic Acid Amplification test (468818). Blood BLOOD SPECIMEN / Unknown 01/22/2021 10:59 AM CDT 01/22/2021 Narrative Resulting Agency Comment Lab Testing performed at: [facility] [address] [id number] Ronit Charles MD LAB - CHEMISTRY O RDERABLES [facility] ACCOUNT BILL [address] [place] [address] from Last 3 Months or Most Recently Relevant to Health Maintenance CIDNY MACE Personal/Famil y 2000 [address] [place] [address] NICOLASA MACE Personal/Famil y Other [address] [place] [address] TIPPEN,NICOLASA P Personal/Famil y Other [address] [place] [address] TIPPEN,NICOLASA P Personal/Famil y Other [address] [place] [address] TIPPEN,NICOLASA P Personal/Famil y Other [address] [place] [address] TIPPEN,NICOLASA P Personal/Famil y Other [address] [place] [address] TIPPEN,NICOLASA P Personal/Famil y Other [address] [place] [address] TIPPEN,NICOLASA P Personal/Famil y Other [address] [place] [address] TIPPEN,NICOLASA P Personal/Famil y Other [address] [place] [address] TIPPEN,NICOLASA P Personal/Famil y Other [address] [place] [address] TIPPEN,NICOLASA P Personal/Famil y Other [address] [place] [address] TIPPEN,NICOLASA P Personal/Famil y Other [address] [place] [address] TIPPEN,NICOLASA P Personal/Famil y Other [address] [place] [address] TIPPEN,NICOLASA P Personal/Famil y Other [address] [place] [address] TIPPEN,NICOLASA P Personal/Famil y Other [address] [place] [address] TIPPEN,NICOLASA P Personal/Famil y Other [address] [place] [address] TIPPEN,NICOLASA P Personal/Famil y Other [address] [place] [address] Care Teams Dance Therapist Relationship Specialty Start Date End Date Ronit Charles MD [address] [place] [address] [place] [address] [facility] - General 11/06/19
[2024-08-01 11:01] VITALS: TEMP 36.8
[2024-08-01] MEDS: TAMSULOSIN HCL 0.4 MG CAPSULE PO (11:22)
[2024-08-01 12:11] VITALS: BP 110/74; PULSE 79; RESP 20; O2SAT 99
== END 2024-08-01 12:12 | disposition home or self-care (01) ==
PROVIDERS: Emergency Provider Physician Assistant
DX: N13.2 Hydronephrosis with renal and ureteral calculous obstruction (principal)
CPT/HCPCS: 36415; 74176; 80053; 81001; 81025; 83690; 85025; 87086; 96361; 96374; 99284; A9270; J2405; J7030